=== PATIENT | female | born 1965 | race African-American/Black ===

== ENCOUNTER → 2017-07-09 | Outpatient (CLI) | payer BC, OTHER ==
--- NOTE | 2017-07-09 17:40 | WOMENS IMAGING REPORT ---
EXAM DESCRIPTION: 3D SCREENING MAMMO BILAT COMPLETED DATE/TIME: 07/09/2017 8:24 am REASON FOR STUDY: SCREENING MAMMO Z12.31 ENCNTR SCREEN MAMMOGRAM FOR MALIGNANT NEOPLASM OF JOSE COMPARISON: 2014 TECHNIQUE: Standard craniocaudal and mediolateral oblique views of each breast recorded using digita l acquisition and breast tomosynthesis. LIMITATIONS: None. FINDINGS: Findings present which are benign by mammographic criteria. No suspicious masses, calcifi cations or architectural distortion. Pertinent benign findings: Postsurgical changes from bilateral breast reduction. Benign bilateral br east parenchymal and skin calcifications. Read with the assistance of CAD. .[facility] - R2 Cenova Version 1.3 .[facility] - R2 Cenova Version 1.3 .[facility] - R2 Cenova Version 2.4 .[facility] [place] R2 Cenova Version 2.4 .[facility] - R2 Test Hole Driller Version 9.2 Benign mammographic findings may include one or more of the following: Smooth masses, popcorn/rim/co arse calcifications, asymmetries, post-procedure changes, and lesions with long-standing stability. IMPRESSION: BENIGN MAMMOGRAPHIC FINDINGS. BIRADS 2 BREAST DENSITY: c. The breasts are heterogeneously dense, which may obscure small masses. BIRAD: 2 BENIGN FINDING(S) RECOMMENDATION: RECOMMENDATION: ROUTINE SCREENING Please continue yearly bilateral screening tomosynthesis in July 2018. COMMENT: The patient has been notified of the results by letter per [place] requirements. Additional no tification policies are in place for contacting patient with suspicious or incomplete findings. Quality ID #[id number]: The [employer] recommends an annual screening mammogram for women aged 40 years or over. This facility utilizes a reminder system to ensure that all patients receive reminder letters, and/or direct phone calls for appointments. This includes reminders for routine scr eening mammograms, diagnostic mammograms, or other Breast Imaging Interventions when appropriate. Th is patient will be placed in the appropriate reminder system. The [employer] (ACR) has developed recommendations for screening MRI of the breast s in certain patient populations, to be used in conjunction with mammography. Breast MRI surveillanc e may be appropriate for women with more than 20% lifetime risk of developing breast cancer as deter mined by genetic testing, significant family history of the disease, or history of mantle radiation f or Hodgkins Disease. ACR Practice Guidelines 2008. DBT Technology DBT is a type of tomographic mammography. With conventional mammography, overlapping breast tissue ma y make lesions difficult to detect, even with good compression. DBT uses an x-ray tube that rotates a round the breast, taking images at different angles. These images are then combined to create thin sl ices of the breast that the radiologist can view as a 3D reconstruction. The Hologic unit can perform full-field digital mammograms (2D imaging); or DBT (3D imaging); or both, in a combination mode that quickly performs both the mammogram and the tomosynthesis scan while the breast is still compressed. PQRS 6045F: Fluoroscopic imaging is not utilized for breast tomosynthesis. TECHNICAL DOCUMENTATION: FINDING NUMBER: (1) ASSESSMENT: (1) JOB ID: [id number] [employer]- All Rights Reserved
== END ==
LOC: WI 07:31
PROVIDERS: ATTEND Physician Assistant
DX: Z12.31 Encounter for screening mammogram for malignant neoplasm of breast (principal)
CPT/HCPCS: 77063; G0202; 77067

== ENCOUNTER → 2018-06-07 | Outpatient (CLI) | payer BC, OTHER ==
--- NOTE | 2018-06-07 20:47 | XCELERA REPORT ---
[address] [address] Transthoracic Echocardiogram Report Name: DEBORAH DUNN Age: 52 yrs Gender: Female : 1965 Patient Status: Outpatient Patient Location: [facility] Study Date: 06/07/2018 09:14 AM Height: 67 in Weight: 206 lb BSA: 2.0 m2 Reason For Study: ABNORM EKG Ordering Physician: MARTHA SAPP Performed By: Pablito Benitez Interpretation Summary Min post. pericardial effusion Normal AV with 3 cusps, no , no AR Normal MV with no mitral annular calcification. No MS, trace MR, no LA enlargement (35 mm by M-mode). LV shows no enlargement, PW is hypertrophy 14 mm. Normal LV size, LVEF is normal, no biplane LVEF calculated by process maintenance technician. Basal LV appears hypokinetic, no other segmental wall motion abn. R Heart is normal but unable to see TR envelope to validate the calculated RVSP of 76. unable to rule in/out pulm hypertension. MMode/2D Measurements & Calculations RVDd: 2.7 cm LVIDd: 4.8 cm FS: 35.5 % Ao root diam: 2.7 cm IVSd: 0.83 cm LVIDs: 3.1 cm EDV(Teich): 105.0 ml LVPWd: 0.99 cm ESV(Teich): 36.9 ml Ao root area: 5.9 cm2 LA dimension: 3.7 cm EF(Teich): 64.8 % LVOT diam: 2.0 cm LVOT area: 3.0 cm2 Doppler Measurements & Calculations MV E max wai: MV P1/2t max wai: Ao V2 max: LV V1 max P.2 cm/sec 89.5 cm/sec 148.6 cm/sec 4.9 mmHg MV A max wai: MV P1/2t: 57.0 msec Ao max PG: LV V1 max: 46.3 cm/sec MVA(P1/2t): 3.9 cm2 8.8 mmHg 110.8 cm/sec MV E/A: 1.7 MV dec slope: RADHA(V,D): 2.3 cm2 460.4 cm/sec2 MV dec time: 0.21 sec PA V2 max: PI end-d wai: TR max wai: MV P1/2t-pr_phl: 96.3 cm/sec 83.6 cm/sec 434.4 cm/sec 57.0 msec PA max PG: TR max P.7 mmHg 75.5 mmHg Left Ventricle The left ventricle is grossly normal size. There is moderate asymmetric left ventricular hypertrophy. IVS 10mm, PW 14 mm LVESD 29mm, LVEDD 46mm. The left ventricular ejection fraction is normal. Doppler measurements suggest normal left ventricular diastolic function. Regional wall motion abnormalities cannot be excluded due to limited visualization. There is basal inferior wall mild hypokinesis. There is proximal anterior wall mild hypokinesis. There is no thrombus. Right Ventricle The right ventricle is normal in size, thickness and function. The right ventricular systolic function is normal. Atria The right atrium is normal. The left atrial size is normal. M Mode LA dimension is 35mm. The interatrial septum is intact with no evidence for an atrial septal defect. Mitral Valve The mitral valve is normal in structure and function. There is no evidence of mitral valve prolapse. There is no vegetation seen on the mitral valve. There is no mitral valve stenosis. There is a trace amount of mitral regurgitation. Aortic Valve The aortic valve is trileaflet. The aortic valve opens well. There is no aortic valvular vegetation. There is no aortic valve stenosis. No aortic regurgitation is present. Tricuspid Valve The tricuspid is normal in structure and function. No significant tricuspid stenosis. There is a mild amount of tricuspid regurgitation. Poor TR doppler envelope, derived RVSP cannot be validated. Unable to r/o pulm hypertension. Pulmonic Valve The pulmonic valve is not well visualized. There is a trace or physiologic amount of pulmonic regurgitation. Great Vessels The aortic root is normal size. 27 mm. Effusions Minimal pericardial effusion. I WMSI = 1.13 % Normal = 88 Segments Size X - Cannot 2 - 4 - 1-2 small Interpret 1 - Normal Hypokinetic 3 - AkineticDyskinetic 3-5 moderate 5 - 6-14 large Aneurysmal 15-16 diffuse : MARTHA SAPP Andre
== END ==
LOC: SP 08:55
PROVIDERS: ATTEND Family Medicine
DX: R94.31 Abnormal electrocardiogram [ECG] [EKG] (principal)
CPT/HCPCS: 93306

== ENCOUNTER → 2018-10-07 | Outpatient (CLI) | payer BC, OTHER | LOC: OD 10:36 | PROVIDERS: ATTEND Orthopaedic Surgery | DX: M17.12 Unilateral primary osteoarthritis, left knee (principal) | CPT/HCPCS: 87070 ==

== ENCOUNTER → 2019-07-28 | Outpatient (CLI) | payer BC, OTHER ==
--- NOTE | 2019-07-30 15:15 | WOMENS IMAGING REPORT ---
EXAM DESCRIPTION: BILAT SCREENING MAMMO W/CAD COMPLETED DATE/TIME: 07/28/2019 3:12 pm REASON FOR STUDY: ROUTINE BILATERAL SCREENING;Z12.31 Z12.31 ENCNTR SCREEN MAMMOGRAM FOR MALIGNANT N EOPLASM OF JOSE COMPARISON: 2014, 2016 EXAM PARAMETERS: Standard craniocaudal and mediolateral oblique views of each breast recorded using digital acquisition. Read with the assistance of CAD. .[facility] - [employer] [facility] [employer] Version 9.2 LIMITATIONS: None. FINDINGS: No suspicious masses, suspicious calcifications or architectural distortion. No areas of c oncern. IMPRESSION: Negative MAMMOGRAM. BIRADS 1 BREAST DENSITY: b. There are scattered areas of fibroglandular density. BIRAD: ASSESSMENT: 1 NEGATIVE RECOMMENDATION: ROUTINE SCREENING COMMENT: The patient has been notified of the results by letter per MQSA requirements. Additional no tification policies are in place for contacting patient with suspicious or incomplete findings. Quality ID #[id number]: The [employer] recommends an annual screening mammogram for women aged 40 years or over. This facility utilizes a reminder system to ensure that all patients receive reminder letters, and/or direct phone calls for appointments. This includes reminders for routine scr eening mammograms, diagnostic mammograms, or other Breast Imaging Interventions when appropriate. Th is patient will be placed in the appropriate reminder system. TECHNICAL DOCUMENTATION: FINDING NUMBER: (1) ASSESSMENT: (1) JOB ID: [id number] [email or web address]- All Rights Reserved Reading location - IP/workstation name: [email or web address]
== END ==
LOC: WI 14:51
PROVIDERS: ATTEND Physician Assistant
DX: Z12.31 Encounter for screening mammogram for malignant neoplasm of breast (principal)
CPT/HCPCS: 77067